=== PATIENT | female | born 1935 | race Caucasian/White ===

== ENCOUNTER → 2016-12-18 | Outpatient (CLI) | payer MEDICARE ==
[~2016-12-18] MED LIST: ADVAIR 100-501 EAC1 INH; ADVAIR 250-501 EACH IH; ADVAIR 2501 DISK W/D; ADVAIR 2501 DISK W/D PO; ALBUTEROL 0.5ML INH; ALBUTEROL20 ml INH; ALLERGY SHOT; ALLERGY SHOTS SUBQ; AMITRYPTYLINE PO; ASTELIN137 MCG INH; ATROVENT HFA12.9 G1 INH; BACTRIM DS TABL1 TA1 PO; CARDIZEM; COMBIVENT INH14.7 GM INH; CORTIZONE-1028 G1 TOP; CYANOCOBAL1000 MCG/1 IM; CYANOCOBAL1000 MCG/M INJ; CYMBALTA PO; DIOVAN HCT 160-1 TAB PO; DIOVAN HCT 160/1 TAB PO; DIOVAN PO; DIOVAN80 M1 PO; DIPHENOXYLATE/A1 TA2 PO; DULOXETINE HCL60 MG PO; ELESTAT OU; FLAXSEED OIL1000 M1 PO; FLEXERIL PO; FLONASE 0.05% N16 G1; HYDROCODONE-APA1 T33 PO; HYDROCODONE-APA1 T45 PO; IMMUNE GLOBULIN IV; IPRATROPIUM0.2 MG/ML NEB; IVIG IV; LEVAQUIN PO; LEVOXYL125 MC1 PO; LIPITOR PO; MAGNESIUM OXID200 MG PO; MECLIZINE HCL12.5 MG PO; MEDROL PO; METOPROLOL TAR25 MG PO; METOPROLOL TART25 MG PO; NAMENDA5 MG PO; NASONEX17 GM; OMEPRAZOLE20 M2 PO; PHENERGAN25 M1 PO; PREDNISONE; PRILOSEC20 MG PO; PRILOSEC40 MG PO; PROAIR HFA8.5 GM INH; PROTONIX PO; RECLAST 55 MG/100 M IV; REGLAN10 MG; RHINOCORT AQUA8.6 GM; SAVELLA12.5 MG; SINGULAIR PO; SPIRIVA18 MCG INH; SPIRIVA18 MCG PO; SYMBICORT80 INH; SYNTHROID PO; SYNTHROID125 PO; SYNTHROID25 MCG PO; SYSTANE BALANCE10 ML OU; TRETINOIN20 G1 TOP; VALSARTAN-HCTZ1 EACH PO; VIBRAMYCIN100 M1; VIIBRYD10 MG PO; VITAMIN B-1000 MCG/1 IJ; VITAMIN D1000 UNIT PO; VITAMIN D2000 UNI1 PO; VITAMIN D250000 UNIT PO; VITAMIN D400 UNI2 PO; VOLTAREN100 GM TP; XODOL 7.5-3001 EACH PO; ZYRTEC PO; ZYRTEC10 M2 PO; [UNRECOGNIZED DRUG - OTHER]
== END | disposition home or self-care (01) ==
LOC: CSSDAY 12:53
DX: D83.9 Common variable immunodeficiency, unspecified (principal); J45.41 Moderate persistent asthma with (acute) exacerbation; E53.8 Deficiency of other specified B group vitamins; Z79.899 Other long term (current) drug therapy
CPT/HCPCS: 36415; 80053; 82784; 85027; 96365; 96366; 96372; J1569; J3420

== ENCOUNTER → 2017-01-03 | Outpatient (CLI) | payer MEDICARE | END | disposition home or self-care (01) | LOC: CSSDAY 12:49 | DX: E53.8 Deficiency of other specified B group vitamins (principal) | CPT/HCPCS: 96372; J3420 ==

== ENCOUNTER → 2017-01-17 | Outpatient (CLI) | payer MEDICARE | END | disposition home or self-care (01) | LOC: CSSDAY 13:10 | DX: E53.8 Deficiency of other specified B group vitamins (principal) | CPT/HCPCS: 96361; 96365; 96372; J1569; J3420 ==

== ENCOUNTER → 2017-01-23 | Outpatient (CLI) | payer MEDICARE ==
--- NOTE | ~2017-01-23 | CT16 ---
[facility] A Service of [facility] & [facility] RADIOLOGY TEXT RESULTS PATIENT: MACEY SHANKS LOCATION: [facility] : 34 UNIT #: [id number] AGE: [address]: Pedro Zhu MD SEX: F ORDER DR: [id number] [facility] [address] [place], [place] [address] [id number] O MR#: [id number] Acc #: [id number] NAME: MACEY SHANKS. : 1935 SEX: F STUDY DATE/TIME: 01/23/2017 14:22 UNIT: [facility] ROOM: STUDY DESCRIPTION: CT Angio Chest for PE Attending Physician: Pedro Zhu M.D. Referring Physician: Pedro Zhu M.D. Ordering Physician: Pedro Zhu M.D. Primary Care Physician: Alisha López A.P.R.N. MEDICAL IMAGING REPORT This report is preliminary unless electronic signature is present EXAM CT angiogram of the chest 01/23/2017 HISTORY Abnormal pulmonary function test, shortness of breath for a few months. Patient has had asthma since she was 7 years old and also reports intermittent chest pain. TECHNIQUE Axial CT images were obtained from the thoracic inlet through the dome of the diaphragm following the administration of intravenous contrast material. Following this 3-D reformatted images were obtained. This CT exam was performed with one or more of the following radiation dose reduction techniques: automatic exposure control, adjustment of mA and/or kV according to patient size, and iterative reconstruction. FINDINGS No acute pulmonary thromboembolus is seen. Thoracic aorta measures within normal size limits. There is no evidence of dissection. There is some coronary artery calcifications. There is no pleural or pericardial effusion. The thyroid gland is atrophic. Trachea is within normal limits. There is a small hiatal hernia. This patient is noted to have some patchy consolidation at the lung bases bilaterally with some bronchial wall thickening noted at the lung bases bilaterally which is more pronounced than on the prior study. This certainly could reflect some bronchitis, however no discrete noncalcified pulmonary nodules or masses are seen. The mediastinal lymph nodes do not appear pathologically enlarged. Liver and gallbladder appear unremarkable. Spleen and adrenal glands appear normal. Pancreas is atrophic. Gallbladder also appears unremarkable. Visualized portions of the kidneys and liver appear normal. There is some narrowing seen at the [facility] A Service of [facility] & [facility] RADIOLOGY TEXT RESULTS PATIENT: MACEY SHANKS LOCATION: [facility] : 34 UNIT #: [id number] AGE: [address]: Pedro Zhu MD SEX: F ORDER DR: origins of the superior mesenteric artery, this probably results in some mild narrowing, and I think there is also some mild narrowing involving the proximal celiac axis. Review of bony windows reveals old right-sided rib fractures. Old left-sided rib fractures are noted as well. No aggressive osseous abnormalities are seen. Patient does have compression deformity of L1 which is stable when compared to January 2013. IMPRESSION 1. No acute pulmonary thromboembolus seen. 2. Thoracic aorta is normal in caliber and without evidence of dissection. Patient does have some atherosclerotic involvement of the thoracic aorta and coronary arteries. 3. Patient does have some patchy areas of linear consolidation seen at the lung bases bilaterally. Furthermore, there is some bronchial wall thickening seen within the lower lobes bilaterally. Findings would certainly reflect some bronchitis. No definite alveolar consolidation is seen to suggest superimposed pneumonia. No suspicious noncalcified pulmonary nodules or masses are seen. 4. Small hiatal hernia. 5. Please see the body of the report for any other additional incidental findings. Dictated by... Brandie Messina M.D. THIS IS AN ELECTRONICALLY VERIFIED REPORT Brandie Messina M.D. at 01/24/2017 4:50 PM AFF/vish TD: 01/23/2017 15:29 JOB #: [id number] MEDICAL IMAGING REPORT Page 1 of 1 COPY
[2017-01-23 14:07] LABS: CREATININE SERUM 0.9 mg/dL (0.6-1.4); GLOM FILT RATE Estimated 59.6 mL/min (>60)
== END | disposition home or self-care (01) ==
LOC: CCAT 13:08
PROVIDERS: Internal Medicine
DX: R94.2 Abnormal results of pulmonary function studies (principal); R06.00 Dyspnea, unspecified; K44.9 Diaphragmatic hernia without obstruction or gangrene
CPT/HCPCS: 36415; 71275; 82565; 84520; Q9967

== ENCOUNTER → 2017-02-17 | Outpatient (CLI) | payer MEDICARE | END | disposition home or self-care (01) | LOC: CSSDAY 12:28 | DX: D83.9 Common variable immunodeficiency, unspecified (principal); J45.51 Severe persistent asthma with (acute) exacerbation; E53.8 Deficiency of other specified B group vitamins; Z79.899 Other long term (current) drug therapy | CPT/HCPCS: 82784; 96365; 96366; 96372; J1569 ==

== ENCOUNTER → 2017-02-17 | Outpatient (CLI) | payer MEDICARE | END | disposition home or self-care (01) | LOC: CSSDAY 12:35 | DX: E53.8 Deficiency of other specified B group vitamins (principal) | CPT/HCPCS: J3420 ==

== ENCOUNTER → 2017-02-19 | Outpatient (CLI) | payer MEDICARE ==
--- NOTE | ~2017-02-19 | BD1 ---
[facility] A Service of [facility] RADIOLOGY TEXT RESULTS PATIENT: MACEY SHANKS LOCATION: [facility] : 34 UNIT #: [id number] AGE: [address]: Alisha López SEX: F ORDER DR: [id number] [facility] [address] [place], [place] [address] [id number] O MR#: [id number] Acc #: [id number] NAME: MACEY SHANKS. : 1935 SEX: F STUDY DATE/TIME: 02/19/2017 11:49 UNIT: [facility] ROOM: STUDY DESCRIPTION: Dexa Bone Dens 1+ Site Attending Physician: Alisha López A.P.R.N. Referring Physician: Alisha López A.P.R.N. Ordering Physician: Alisha López A.P.R.N. Primary Care Physician: Alisha López A.P.R.N. MEDICAL IMAGING REPORT This report is preliminary unless electronic signature is present EXAM Bone densitometry HISTORY 81-year-old postmenopausal female. FINDINGS The bone marrow density of the lumbar spine (L1-L4) is 0.944 g/cm2. This correlates with T-score of -0.9 and a Z-score 1.8. This is classified as normal bone mineralization. No significant change from 2014 comparison. The bone mineral density of the left proximal femoral neck region is calculated at 0.526 g per centimeter squared. This correlates with T-score of -2.9 and a Z-score of -0.5. This is classified as osteoporosis. There is 97.7% decrease in total bone mineral density of the left proximal femur since the 2014 comparison. IMPRESSION 1. Osteoporosis. 2. Decreased bone mineral density of the proximal left femur. Dictated by... French Ortiz M.D. THIS IS AN ELECTRONICALLY VERIFIED REPORT French Ortiz M.D. at 02/19/2017 4:31 PM NEDA/imelda TD: 02/19/2017 13:58 JOB #: [id number] [facility] A Service of [facility] & [facility] RADIOLOGY TEXT RESULTS PATIENT: MACEY SHANKS LOCATION: [facility] : 34 UNIT #: [id number] AGE: [address]: Alisha López SEX: F ORDER DR: MEDICAL IMAGING REPORT Page 1 of 1 COPY
== END | disposition home or self-care (01) ==
LOC: CWCC 11:33
DX: Z78.0 Asymptomatic menopausal state (principal); M81.0 Age-related osteoporosis without current pathological fracture
CPT/HCPCS: 77080

== ENCOUNTER → 2017-03-17 | Outpatient (CLI) | payer MEDICARE ==
[2017-03-17 13:20] LABS: BASOPHIL# 0.1 X10e3 (0-0.3); EOSINOPHIL# 0.3 X10e3 (0-0.7); EOSINOPHIL% 4.7 % (0.0-7.0); HEMATOCRIT 33.8 % (35.0-45.0); HEMOGLOBIN 10.4 gm/dL (12.0-16.0); LYMPHOCYTE# 2.3 X10e3 (1.0-3.5); LYMPHOCYTE% 35.3 % (17.0-45.0); MEAN CELL VOLUME 80.5 FL (83-96); MEAN CORPUSCULAR HEMOGLOBIN 24.8 PG (28-34); MEAN CORPUSCULAR HGB CONC 30.9 g/dL (30-36); MEAN PLATELET VOLUME 8.1 FL (6.5-11.5); MONOCYTE# 0.5 X10e3 (0-1.0); NEUTROPHIL# 3.3 X10e3 (1.5-7.1); PLATELET COUNT 304 X10e3 (140-420); RED CELL DISTRIBUTION WIDTH 16.3 % (11.0-15.5); WHITE BLOOD COUNT 6.6 X10e3 (4.0-10.5)
[2017-03-17 13:29] LABS: DIFF IND NO
[2017-03-17 13:33] LABS: ALBUMIN SERUM 3.7 g/dL (3.5-5.0); BILIRUBIN,TOTAL 0.5 mg/dL (0.2-2.0); BUN/CREATININE RATIO 14.28; CALCIUM SERUM 9.3 mg/dL (8.4-10.2); CREATININE SERUM 0.7 mg/dL (0.6-1.4); GLOM FILT RATE Estimated 80.7 mL/min (>60); POTASSIUM 3.9 mmol/L (3.5-5.1); PROTEIN TOTAL SERUM 6.8 g/dL (6.0-8.3)
== END | disposition home or self-care (01) ==
LOC: CSSDAY 12:31
PROVIDERS: Nurse Practitioner
DX: J45.41 Moderate persistent asthma with (acute) exacerbation (principal); E53.8 Deficiency of other specified B group vitamins; Z79.899 Other long term (current) drug therapy
CPT/HCPCS: 80053; 82784; 85025; 96365; 96366; 96372; J1569; J3420

== ENCOUNTER → 2017-03-17 | Outpatient (CLI) | payer MEDICARE | END | disposition home or self-care (01) | LOC: CSSDAY 12:29 | DX: J45.41 Moderate persistent asthma with (acute) exacerbation (principal); E53.8 Deficiency of other specified B group vitamins; Z79.899 Other long term (current) drug therapy | CPT/HCPCS: 96365; 96366 ==

== ENCOUNTER → 2017-04-18 | Outpatient (CLI) | payer MEDICARE ==
[2017-04-18 14:03] LABS: BASOPHIL% 0.4 % (0-2.5); EOSINOPHIL# 0.2 X10e3 (0-0.7); EOSINOPHIL% 2.9 % (0.0-7.0); HEMATOCRIT 36.1 % (35.0-45.0); HEMOGLOBIN 11.2 gm/dL (12.0-16.0); LYMPHOCYTE# 2.2 X10e3 (1.0-3.5); LYMPHOCYTE% 30.4 % (17.0-45.0); MEAN CELL VOLUME 78.2 FL (83-96); MEAN CORPUSCULAR HEMOGLOBIN 24.2 PG (28-34); MEAN CORPUSCULAR HGB CONC 30.9 g/dL (30-36); MEAN PLATELET VOLUME 8.7 FL (6.5-11.5); MONOCYTE# 0.6 X10e3 (0-1.0); MONOCYTE% 8.4 % (3.0-12.0); NEUTROPHIL# 4.3 X10e3 (1.5-7.1); NEUTROPHIL% 57.9 % (40-75); PLATELET COUNT 292 X10e3 (140-420); RED BLOOD COUNT 4.62 X10e (3.90-5.30); RED CELL DISTRIBUTION WIDTH 16.3 % (11.0-15.5); WHITE BLOOD COUNT 7.4 X10e3 (4.0-10.5)
[2017-04-18 14:04] LABS: DIFF IND NO
== END | disposition home or self-care (01) ==
LOC: CSSDAY 12:47
PROVIDERS: Nurse Practitioner
DX: E53.8 Deficiency of other specified B group vitamins (principal); Z79.899 Other long term (current) drug therapy
CPT/HCPCS: 82784; 85025; 96365; 96366; 96372; J1569; J3420

== ENCOUNTER → 2017-04-24 | Day surgery (SDC) | payer MEDICARE ==
--- NOTE | ~2017-04-24 | OR ---
Unit #: [id number] #: [id number] Patient: MACEY SHANKS [id number] [address] [place], [place] [address] [id number] O MR#: [id number] NAME: MACEY SHANKS. ROOM: Date of Procedure: 04/24/2017 Admission Date: 04/24/2017 Surgeon: Sandoval Rhoades M.D. : 1935 Attending Physician: Sandoval Rhoades M.D. Primary Care Physician: Alisha López A.P.R.N. OPERATIVE REPORT PREOPERATIVE DIAGNOSES Back pain, radiculopathy, post-laminectomy. POSTOPERATIVE DIAGNOSES Back pain, radiculopathy, post-laminectomy. PROCEDURE PERFORMED Lumbar epidural steroid injection with intravenous sedation and fluoroscopic guidance for needle localization. INDICATIONS FOR PROCEDURE The patient is an 81-year-old female with worsening back pain associated with previously mentioned pathology. The patient is a nonsurgical candidate. Epidural steroids in the past have been quite helpful for her. She treated medically as well. Plan is to repeat an epidural steroid injection based on her flare of pain, treatment options, and pathology. DESCRIPTION OF PROCEDURE The patient was placed in the seated position. Standard monitors were applied. 1 mg of Versed was given for sedation and anxiolysis, which were adequate. Vital signs remained stable. Sterile prep and drape then of the lumbar area was performed. The skin at the L4-L5 level was localized with 1% lidocaine. An 18-gauge Hustead needle was then advanced via loss of resistance technique and fluoroscopic guidance in toward the epidural space. The patient did not complain of pain or paresthesia during needle advancement. After confirming proper positioning with fluoroscopy and radiographic contrast, 80 mg of Depo-Medrol and 4 mL of 0.5% lidocaine were deposited. The patient tolerated the procedure otherwise well and was discharged to the recovery room in stable condition. Dictated by... Adina Poon/niesha TD: 04/25/2017 02:13 JOB #: [id number] Unit #: [id number] #: [id number] Patient: MACEY SHANKS OPERATIVE REPORT Page 1 of 1 X Sandoval Rhoades MD X PROCEDURE OPERATIVE NOTE
== END | disposition home or self-care (01) ==
LOC: CCSC 10:54
DX: M51.16 Intervertebral disc disorders with radiculopathy, lumbar region (principal); M96.1 Postlaminectomy syndrome, not elsewhere classified; M15.0 Primary generalized (osteo)arthritis; J44.9 Chronic obstructive pulmonary disease, unspecified; I10 Essential (primary) hypertension; K21.9 Gastro-esophageal reflux disease without esophagitis
CPT/HCPCS: J1040; J2250

== ENCOUNTER → 2017-05-16 | Outpatient (CLI) | payer MEDICARE | END | disposition home or self-care (01) | LOC: CSSDAY 11:00 | DX: E53.8 Deficiency of other specified B group vitamins (principal); Z79.899 Other long term (current) drug therapy | CPT/HCPCS: 96372; J3420 ==

== ENCOUNTER → 2017-05-16 | Outpatient (CLI) | payer MEDICARE | END | disposition home or self-care (01) | LOC: CSSDAY 11:00 | DX: J45.41 Moderate persistent asthma with (acute) exacerbation (principal); Z79.899 Other long term (current) drug therapy | CPT/HCPCS: 96365; 96366; J1569 ==

== ENCOUNTER → 2017-06-09 | Outpatient (CLI) | payer MEDICARE ==
[2017-06-09 15:24] LABS: BUN/CREATININE RATIO 21.42; CREATININE SERUM 0.7 mg/dL (0.6-1.4); GLOM FILT RATE Estimated 80.1 mL/min (>60); POTASSIUM 4.4 mmol/L (3.5-5.1)
== END | disposition home or self-care (01) ==
LOC: CSSDAY 06-06 13:00
PROVIDERS: Nurse Practitioner
DX: M81.0 Age-related osteoporosis without current pathological fracture (principal); Z51.81 Encounter for therapeutic drug level monitoring; Z79.899 Other long term (current) drug therapy
CPT/HCPCS: 36415; 80048; 96374; J1569; J3489

== ENCOUNTER → 2017-06-10 | Day surgery (SDC) | payer MEDICARE ==
--- NOTE | ~2017-06-10 | OR ---
Unit #: [id number] #: [id number] Patient: MACEY SHANKS [id number] [address] [place], [place] [address] [id number] O MR#: [id number] NAME: MACEY SHANKS. ROOM: Date of Procedure: 06/10/2017 Admission Date: 06/10/2017 Surgeon: Sandoval Rhoades M.D. : 1935 Attending Physician: Sandoval Rhoades M.D. Primary Care Physician: Alisha López A.P.R.N. OPERATIVE REPORT PREOPERATIVE DIAGNOSES Post-laminectomy, degenerative disk disease, low back pain. POSTOPERATIVE DIAGNOSES Post-laminectomy, degenerative disk disease, low back pain. PROCEDURE PERFORMED Lumbar epidural steroid injection with intravenous sedation and fluoroscopic guidance for needle localization. INDICATIONS FOR PROCEDURE The patient is an 81-year-old female, who has multifactorial multilevel degenerative disk and spine disease causing back pain, failed to settle with conservative treatment. Epidural steroids have been effective in the past. She had injection about a month and a half ago, which helped the pain across her low back at the surgical level. Still had significant pain in her upper lumbar and lower thoracic area. Plan is to repeat an epidural steroid injection at that level. DESCRIPTION OF PROCEDURE The patient was placed in a seated position. Standard monitors were applied. 1 mg of Versed was given for sedation and anxiolysis, which was adequate. Vital signs remained stable. Sterile prep and drape then of the lumbar area was performed. The skin then at the L1 level was localized with 1% lidocaine. An 18-gauge Hustead needle was then advanced via loss of resistance technique in toward the epidural space. After confirming proper positioning with fluoroscopy and radiographic contrast, 80 mg of Depo-Medrol and 4 mL of 0.125% bupivacaine were deposited. The patient tolerated the procedure otherwise well and was discharged to the recovery room in stable condition. Dictated by... Adina Poon/niesha TD: 06/10/2017 11:43 JOB #: [id number] Unit #: [id number] #: [id number] Patient: MACEY SHANKS OPERATIVE REPORT Page 1 of 1 X Sandoval Rhoades MD X PROCEDURE OPERATIVE NOTE
== END | disposition home or self-care (01) ==
LOC: CCSC 10:11
DX: M51.16 Intervertebral disc disorders with radiculopathy, lumbar region (principal); Z98.890 Other specified postprocedural states
CPT/HCPCS: J1040; J2250

== ENCOUNTER → 2017-06-30 | Outpatient (CLI) | payer MEDICARE | END | disposition home or self-care (01) | LOC: CSSDAY 06-24 08:00 | DX: E53.8 Deficiency of other specified B group vitamins (principal) | CPT/HCPCS: 96372; J1569 ==

== ENCOUNTER → 2017-06-30 | Outpatient (CLI) | payer MEDICARE | END | disposition home or self-care (01) | LOC: CSSDAY 13:27 | DX: J45.41 Moderate persistent asthma with (acute) exacerbation (principal); E53.8 Deficiency of other specified B group vitamins; Z79.899 Other long term (current) drug therapy | CPT/HCPCS: 82784; 96365; 96366; 96372; J1569; J3420 ==

== ENCOUNTER → 2017-07-18 | Day surgery (SDC) | payer MEDICARE ==
--- NOTE | ~2017-07-18 | OR ---
Unit #: [id number] #: [id number] Patient: MACEY SHANKS [id number] [address] [place], [place] [address] [id number] O MR#: [id number] NAME: MACEY SHANKS ROOM: Date of Procedure: 07/18/2017 Admission Date: 07/18/2017 Surgeon: Brandon Mancilla M.D. : 1935 Attending Physician: Brandon Mancilla M.D. Primary Care Physician: Alisha López A.P.R.N. OPERATIVE REPORT ATTENDING PHYSICIAN NEVA Diaz. PREOPERATIVE DIAGNOSES The patient has presented with a history of postprandial epigastric pain, nausea, and dyspepsia as well as history of iron deficiency anemia. PROCEDURES PERFORMED Upper gastrointestinal endoscopy and biopsy. POSTOPERATIVE DIAGNOSES 1. The patient had moderate amount of solid food residue in the stomach indicating underlying gastroparesis. There were also solid food in the duodenum. 2. Mild prepyloric antral gastritis. This was in the form of focal erythema and erosions. 3. Rest of the examination up to third part of duodenum was normal. A biopsy was obtained from the antrum for CLOtest. In addition, biopsies were also obtained from the deep descending duodenal folds to look for any evidence of partial villous atrophy or celiac disease. RECOMMENDATIONS The patient being started on Reglan 10 mg p.o. t.i.d. She will be followed up in the office in 6 to 8 weeks' time. SEDATION USED MAC. DESCRIPTION OF PROCEDURE Following detailed explanation of the potential risks and complications of an upper endoscopy, namely perforation, bleeding, and complication related to sedation, the patient was brought to GI lab and laid in the left lateral decubitus position. Lubricated tip of the Olympus video upper endoscope was passed through the bite block into the proximal esophagus under direct vision. The entire esophageal mucosa was examined and appeared normal. Z-line was nicely demarcated, there being no esophagitis or hiatus hernia. The scope was then advanced into the gastric cavity and the latter was insufflated. Mucosa of the fundus, body, and antrum was examined. The patient was noted to have moderate amount of solid food residue in the body of the stomach. In addition, there was prepyloric antral erythema and erosions in the antral area. Pylorus was intubated with visualization of the normal duodenal bulb and second and third part Unit #: [id number] #: [id number] Patient: MACEY SHANKS of the duodenum. Biopsies were obtained from the deep descending duodenal folds to look for any evidence of partial villous atrophy or celiac disease. Upon withdrawal and retroflexion; incisura, cardia, and greater curve was examined and biopsy was obtained from the antrum for CLOtest. The scope was then withdrawn in the distal esophagus. Entire esophageal mucosa was examined all the way up to pharynx. No additional findings were noted. The patient tolerated the procedure without any postprocedure complications. Dictated by... Adina Baeza/niesha TD: 07/18/2017 13:12 JOB #: [id number] OPERATIVE REPORT Page 1 of 1 X Brandon Mancilla MD X PROCEDURE OPERATIVE NOTE
== END | disposition home or self-care (01) ==
LOC: COPS 07:15
DX: K25.9 Gastric ulcer, unspecified as acute or chronic, without hemorrhage or perforation (principal); K31.84 Gastroparesis; J44.9 Chronic obstructive pulmonary disease, unspecified; E03.9 Hypothyroidism, unspecified; K21.9 Gastro-esophageal reflux disease without esophagitis; Z88.0 Allergy status to penicillin; Z88.1 Allergy status to other antibiotic agents; Z88.2 Allergy status to sulfonamides; Z88.5 Allergy status to narcotic agent; Z91.013 Allergy to seafood; Z79.899 Other long term (current) drug therapy; Z96.653 Presence of artificial knee joint, bilateral; Z98.51 Tubal ligation status; Z98.890 Other specified postprocedural states
CPT/HCPCS: 87077; 88305

== ENCOUNTER 2017-07-21 18:31 | Emergency (ER) | payer MEDICARE ==
--- NOTE | ~2017-07-21 | CR151 ---
[facility] A Service of [facility] & [facility] RADIOLOGY TEXT RESULTS PATIENT: MACEY SHANKS LOCATION: [facility] : 34 UNIT #: [id number] AGE: [address]: Venancio Churchill MD SEX: F ORDER DR: [id number] [facility] [address] [place], [place] [address] [id number] E MR#: [id number] Acc #: [id number] NAME: MACEY SHANKS. : 1935 SEX: F STUDY DATE/TIME: 07/21/2017 20:19 UNIT: [facility] ROOM: STUDY DESCRIPTION: CR Hip Min 2 Views Rt Attending Physician: Venancio Churchill M.D. Ordering Physician: Reinier Foreman M.D. Primary Care Physician: Alisha López A.P.R.N. MEDICAL IMAGING REPORT This report is preliminary unless electronic signature is present EXAM Right hip series date 07/21/2017 COMPARISON Right hip series dated 07/25/2014. HISTORY Right hip pain post fall today. FINDINGS Two views of the right hip were obtained. No acute displaced fracture or dislocation of the right hip joint. There are probably mild arthritic changes. Degenerative changes of the lower lumbar spine is seen. Dictated by... Augusto Sotomayor M.D. THIS IS AN ELECTRONICALLY VERIFIED REPORT Augusto Sotomayor M.D. at 07/22/2017 10:01 PM CPR/mjs TD: 07/22/2017 12:46 JOB #: [id number] MEDICAL IMAGING REPORT Page 1 of 1 COPY
--- NOTE | ~2017-07-21 | CR173 ---
[facility] A Service of [facility] & [facility] RADIOLOGY TEXT RESULTS PATIENT: MACEY SHANKS LOCATION: [facility] : 34 UNIT #: [id number] AGE: [address]: Venancio Churchill MD SEX: F ORDER DR: [id number] [facility] [address] [place], [place] [address] [id number] E MR#: [id number] Acc #: [id number] NAME: MACEY SHANKS. : 1935 SEX: F STUDY DATE/TIME: 07/21/2017 20:29 UNIT: [facility] ROOM: STUDY DESCRIPTION: CR Knee 3 Views Rt Attending Physician: Venancio Churchill M.D. Ordering Physician: Reinier Foreman M.D. Primary Care Physician: Alisha López A.P.R.N. MEDICAL IMAGING REPORT This report is preliminary unless electronic signature is present EXAM Right knee series dated 07/21/2017. COMPARISON None. HISTORY Right knee pain post fall today. FINDINGS Three views of the right knee were obtained. Status post total right knee arthroplasty with soft tissue swelling in the prepatellar and infrapatellar region. No obvious acute displaced fracture or loosening of the prosthesis is seen. Dictated by... Augusto Sotomayor M.D. THIS IS AN ELECTRONICALLY VERIFIED REPORT Augusto Sotomayor M.D. at 07/22/2017 10:01 PM CPR/psc TD: 07/22/2017 10:23 JOB #: [id number] MEDICAL IMAGING REPORT Page 1 of 1 COPY
--- NOTE | ~2017-07-21 | CT52 ---
[facility] A Service of [facility] & [facility] RADIOLOGY TEXT RESULTS PATIENT: MACEY SHANKS LOCATION: [facility] : 34 UNIT #: [id number] AGE: [address]: Venancio Churchill MD SEX: F ORDER DR: [id number] [facility] [address] [place], [place] [address] [id number] E MR#: [id number] Acc #: [id number] NAME: MACEY SHANKS. : 1935 SEX: F STUDY DATE/TIME: 07/21/2017 20:04 UNIT: [facility] ROOM: STUDY DESCRIPTION: CT Cervical Spine Wo Cont Attending Physician: Venancio Churchill M.D. Ordering Physician: Reinier Foreman M.D. Primary Care Physician: Alisha López A.P.R.N. MEDICAL IMAGING REPORT This report is preliminary unless electronic signature is present EXAM CT of the cervical spine without contrast dated 07/21/2017. COMPARISON CT cervical spine without contrast dated 06/13/2015. HISTORY Posterior neck pain and headache post fall at home at [address] of the c-spine was obtained without contrast in the axial plane followed by sagittal and coronal reformats. This CT exam was performed with one or more of the following radiation dose reduction techniques: Automatic exposure control, adjustment of mA and/or kV according to patient size, and iterative reconstruction. Vertebral body heights are relatively preserved. Degenerative endplate changes are noted at C6-7 and C5-6. There is mild, 3 mm retrolisthesis of C5 with respect to C4. Atelectatic changes are noted in posterior right upper lobe. No pleural effusion. Heart is of normal size. C2-3: Disc-osteophyte complex with severe left and moderate right facet hypertrophic change. Mild left neural foraminal narrowing is seen without canal stenosis. C3-4: Disc-osteophyte complex with very severe left and severe right facet hypertrophic change. Lonp-oh-oxghlzuz left neural foraminal narrowing. No canal stenosis. C4-5: Disc-osteophyte complex with severe bilateral facet hypertrophic change. No canal stenosis or neural foraminal narrowing. [facility] A Service of [facility] & [facility] RADIOLOGY TEXT RESULTS PATIENT: MACEY SHANKS LOCATION: [facility] : 34 UNIT #: [id number] AGE: [address]: Venancio Churchill MD SEX: F ORDER DR: C5-6: Disc-osteophyte complex with moderate bilateral facet hypertrophic changes and mild left neural foraminal narrowing. No canal stenosis. C6-7: Disc-osteophyte complex with bilateral uncinate spurs, worse on the left. Severe left neural foraminal narrowing is seen. Moderate left and mild right facet hypertrophic change. Borderline size canal. C7-T1: Disc-osteophyte complex with mild right and moderate left facet hypertrophic change. No canal stenosis or neural foraminal narrowing. IMPRESSION 1. No acute fracture. 2. 3 mm retrolisthesis of C5 with respect to C4. 3. Degenerative disc disease and facet changes are noted at multiple levels as described above. 4. There is severe left C6-7 neural foraminal narrowing. Correlate with left C7 radiculopathy. 5. No significant interval change when compared to the prior study from 06/13/2015. 6. Right lung atelectasis/infiltrate along the posterior aspect of the right upper lobe. Dictated by... Augusto Sotomayor M.D. THIS IS AN ELECTRONICALLY VERIFIED REPORT Augusto Sotomayor M.D. at 07/22/2017 10:01 PM CPR/psc TD: 07/22/2017 10:31 JOB #: [id number] MEDICAL IMAGING REPORT Page 1 of 1 COPY
--- NOTE | ~2017-07-21 | CT71 ---
[facility] A Service of [facility] RADIOLOGY TEXT RESULTS PATIENT: MACEY SHANKS LOCATION: [facility] : 34 UNIT #: [id number] AGE: [address]: Venancio Churchill MD SEX: F ORDER DR: [id number] [facility] [address] [place], [place] [address] [id number] E MR#: [id number] Acc #: [id number] NAME: MACEY SHANKS : 1935 SEX: F STUDY DATE/TIME: 07/21/2017 19:44 UNIT: [facility] ROOM: STUDY DESCRIPTION: CT Head Wo Contrast Attending Physician: Venancio Churchill M.D. Ordering Physician: Reinier Foreman M.D. Primary Care Physician: Alisha López A.P.R.N. MEDICAL IMAGING REPORT This report is preliminary unless electronic signature is present REVISED REPORT EXAM Head CT without contrast 07/21/2017 HISTORY Diffuse headache status post fall at home today at 1800 hit head with posterior neck pain. TECHNIQUE This CT exam was performed with one or more of the following radiation dose reduction techniques: Automatically exposure control, adjustment of mA and / kV according to patient size, and iterative reconstruction. FINDINGS Multiple axial images were obtained from the skull base to vertex without intravenous contrast administration. There is generalized enlargement of the ventricles and sulci characteristic of atrophy and there is periventricular microvascular white matter ischemic change. There is no midline shift. There is no mass or mass effect, hemorrhage or acute infarct. The visualized paranasal sinuses are clear. Old fracture of the right side of the nasal bone is stable compared with 06/13/[address] IMPRESSION Atrophy and chronic ischemic change. No acute intracranial abnormality. Dictated by... Dewayne Hobson M.D. THIS IS AN ELECTRONICALLY VERIFIED REPORT Dewayne Hobson M.D. at 07/23/2017 10:41 AM KRT/lb [facility] A Service of [facility] RADIOLOGY TEXT RESULTS PATIENT: MACEY SHANKS LOCATION: [facility] : 34 UNIT #: [id number] AGE: [address]: Venancio Churchill MD SEX: F ORDER DR: TD: 07/22/2017 12:25 JOB #: [id number] MEDICAL IMAGING REPORT Page 1 of 1 COPY
--- NOTE | ~2017-07-21 | CR211 ---
[facility] A Service of [facility] RADIOLOGY TEXT RESULTS PATIENT: MACEY SHANKS LOCATION: [facility] : 33 UNIT #: [id number] AGE: [address]: Venancio Churchill MD SEX: F ORDER DR: [id number] [facility] [address] [place], [place] [address] [id number] MR#: [id number] Acc #: [id number] NAME: MACEY SHANKS. : 1935 SEX: F STUDY DATE/TIME: 07/21/2017 20:07 UNIT: [facility] ROOM: STUDY DESCRIPTION: CR Ribs Uni 2 View W PA Ch Rt Attending Physician: Venancio Churchill M.D. Ordering Physician: Reinier Foreman M.D. Primary Care Physician: Alisha López A.P.R.N. MEDICAL IMAGING REPORT This report is preliminary unless electronic signature is present EXAM Frontal view of the chest and right-sided rib views, 07/21/2017. COMPARISON CT angiogram chest, 01/23/2017; chest, 2 views, 10/14/2016. HISTORY Patient fell today with right-sided rib pain along the lower aspect. FINDINGS Frontal view of the chest was obtained. It is a poor inspiratory film with minimal subsegmental atelectasis in the left lung base and in the right upper lobe, extending from the right hilum. There is deformity noted in the left superolateral ribs, suggestive of old trauma. It is particularly noted in the left third and fourth ribs in the posterior segment. The heart is of normal size. Right shoulder total arthroplasty is noted with prosthesis. 4 images of right-sided upper and lower ribs were obtained in the frontal and oblique views. Old, healed fractures of the right seventh and eighth ribs were noted in the posterolateral aspect. No acute displaced fracture is seen. Degenerative changes are noted in the thoracolumbar spine. IMPRESSION 1. Old, healed fractures are noted in the right seventh and eighth ribs and in the left third and fourth ribs. 2. No obvious acute displaced fracture is noted in the right side. 3. Minimal subsegmental atelectasis in the left lung base. Dictated by... Augusto Sotomayor M.D. [facility] A Service of [facility] RADIOLOGY TEXT RESULTS PATIENT: MACEY SHANKS LOCATION: [facility] : 33 UNIT #: [id number] AGE: [address]: Venancio Churchill MD SEX: F ORDER DR: THIS IS AN ELECTRONICALLY VERIFIED REPORT Augusto Sotomayor M.D. at 07/22/2017 10:01 PM CPR/cathy TD: 07/22/2017 13:26 JOB #: [id number] MEDICAL IMAGING REPORT Page 1 of 1 COPY
[~2017-07-21 18:31] MED LIST changes: -ADVAIR 100-501 EAC1 INH; -ALBUTEROL20 ml INH; -CYANOCOBAL1000 MCG/1 IM; -FLONASE 0.05% N16 G1; -IMMUNE GLOBULIN IV; -METOPROLOL TART25 MG PO; -OMEPRAZOLE20 M2 PO; -PHENERGAN25 M1 PO; -SYNTHROID25 MCG PO; -VITAMIN D250000 UNIT PO; -XODOL 7.5-3001 EACH PO
[2017-07-29] MEDS ORDERED: VITAMIN D250000 UNIT PO (08:40)
[2017-07-29] MEDS ORDERED: RECLAST 55 MG/100 M IV (10:54)
[2017-07-29] MEDS ORDERED: SYNTHROID125 PO (11:07)
[2017-07-29] MEDS ORDERED: SYNTHROID25 MCG PO (13:23)
[2017-07-29] MEDS ORDERED: DULOXETINE HCL60 MG PO (14:20)
[2017-07-29] MEDS ORDERED: XODOL 7.5-3001 EACH PO (14:32)
[2017-07-29] MEDS ORDERED: ALBUTEROL20 ml INH (14:46)
[2017-07-29] MEDS ORDERED: ZYRTEC10 M2 PO (14:49)
[2017-07-29] MEDS ORDERED: CYANOCOBAL1000 MCG/1 IM (14:53)
[2017-07-29] MEDS ORDERED: FLONASE 0.05% N16 G1 (14:54)
[2017-07-29] MEDS ORDERED: ADVAIR 100-501 EAC1 INH (14:55)
[2017-07-29] MEDS ORDERED: IMMUNE GLOBULIN IV (14:56)
[2017-07-29] MEDS ORDERED: SINGULAIR PO (14:57)
[2017-07-29] MEDS ORDERED: METOPROLOL TART25 MG PO (14:57)
[2017-07-29] MEDS ORDERED: OMEPRAZOLE20 M2 PO (14:58)
[2017-07-29] MEDS ORDERED: PHENERGAN25 M1 PO (14:59)
== END 2017-07-21 22:21 | disposition home or self-care (01) ==
LOC: CED 18:31
DX: S70.01XA Contusion of right hip, initial encounter (principal); S80.01XA Contusion of right knee, initial encounter; S00.93XA Contusion of unspecified part of head, initial encounter; I10 Essential (primary) hypertension; Z88.0 Allergy status to penicillin; Z88.2 Allergy status to sulfonamides; Z88.1 Allergy status to other antibiotic agents; Z88.5 Allergy status to narcotic agent; Z79.899 Other long term (current) drug therapy; W18.09XA Striking against other object with subsequent fall, initial encounter
CPT/HCPCS: 70450; 71101; 72125; 73502; 73562; 99284